=== PATIENT | female | born 1990 | race Caucasian/White ===

== ENCOUNTER → 2023-04-03 13:37 | Outpatient (REF) | payer OTHER, SELFPAY | LOC: RAD 13:37 | PROVIDERS: ATTENDING PHYSICIAN Internal Medicine Rheumatology; FAMILY PHYSICIAN Family Medicine | DX: M54.16 Radiculopathy, lumbar region (principal) | CPT/HCPCS: 72110 ==

== ENCOUNTER 2023-08-05 15:27 | Emergency (ER) | payer OTHER, SELFPAY ==
[2023-08-05 15:32] VITALS: BP 125/89
[2023-08-05 16:10] LABS: % Basophils 0.7 % (0-2); % Immature Granulocytes 0.2 % (0-0.5); % Lymphocytes 30.7 % (20.5-51.1); % Monocytes 4.8 % (1.7-9.3); % Neutrophils 63.6 % (42.2-75.2); Absolute Lymphocytes 1.4 10^3/uL (1.2-3.4); Absolute Monocytes 0.2 10^3/uL (0.1-0.6); Absolute Neutrophils 2.9 10^3/uL (1.4-6.5); Hematocrit 33.9 % (37.0-47.0); Hemoglobin 12.4 g/dL (12.0-16.0); Mean Corp Hgb Conc. 36.6 g/dL (33.0-37.0); Mean Corpuscular Hgb 30.9 pg (27.0-31.0); Mean Corpuscular Volume 84.5 fL (81.0-99.0); Mean Platelet Volume 9.5 fL (7.4-10.4); Nucleated Red Blood Cells % 0 %; Platelet Count 238 10^3/uL (130-400); Red Blood Cell Count 4.01 10^6/uL (4.20-5.40); Red Cell Dist. Width 11.6 % (11.5-14.5); White Blood Cell Count 4.6 10^3/uL (4.8-10.8)
[2023-08-05 16:25] LABS: HCG, Serum Qualitative Screen Negative
[2023-08-05 16:29] LABS: ALT (SGPT) 17 U/L (0-35); AST (SGOT) 22 U/L (14-36); Albumin 4.3 g/dl (3.5-5.0); Alkaline Phosphatase 52 U/L (38-126); Blood Urea Nitrogen 14 mg/dl (7-17); Calcium 9.7 mg/dl (8.4-10.2); Carbon Dioxide 24 mmol/L (22-30); Chloride 101 mmol/L (98-107); Glucose 170 mg/dl (70-99); Potassium 4.1 mmol/L (3.5-5.1); Sodium 135 mmol/L (135-145); Total Bilirubin 0.5 mg/dl (0.2-1.3); Total Protein 6.6 g/dl (6.3-8.2); eGFR > 60.00
[2023-08-05 16:30] LABS: Lipase 56 U/L (23-300)
--- NOTE | 2023-08-05 19:44 | ED.GENMED ---
History of Present Illness
General
Chief Complaint: Abdominal Symptoms
Source: patient
Exam Limitations: none
Time Seen by Provider: 08/05/23 19:15
Nursing documentation reviewed up to this point in time: agreed with
Travel History
Have you had any contact with someone who has COVID-19?: No
Do you have any symptoms of coronavirus? Fever > 100 degrees, chills, cough, shortness of breath, sore throat, loss of taste or smell, muscle aches, or headache?: No
History of Present Illness
History of Present Illness:
32 yo w IDDM, GERD, Edmundo's thyroiditis, mixed connective tissue disease on Plaquenil 200 mg BID, had nausea and dry heaves 7 days ago, loose but not diarrheal stools. Past 3 days stools have become urgent and watery, non bloody. Last stool 5
hours ago. She did eat cucumbers 2 days before symptoms started and they have been recalled for poss salmonella.
Denies f/c. No n/v since the first day. Denies abdominal pain.
Past History
Past History
ED Past Medical History: Asthma (As child), IDDM (Type 1) and Other (Mixed connective tissue disease on Plaquenil); Negative HTN or Hypercholesterolemia
ED Past Surgical History: Other (Laparoscopy, adenoidectomy)
Social History
Tobacco: Former smoker (occasionally)
Alcohol: None
Drug: None
Personal: (Partner in room)
Living: with family
Employment: Employed
Family History
Family History: Diabetes
Review of Systems
Review of Systems
Allergies reviewed?: Yes
All Other Systems: ROS reviewed and negative except as documented in HPI and ROS
Constitutional: Denies fever or chills
Respiratory: Denies trouble breathing
Cardiac: Denies chest pain
ABD/GI: Reports diarrhea; Denies abdominal pain, nausea, vomiting, bloody stools, black stools or anorexia
: Denies dysuria, frequency or difficulty voiding
Musculoskeletal: Reports no symptoms
Skin: Reports no symptoms
Phy Exam
Physical Exam
Physical Exam:
GENERAL: No acute distress. A&Ox3.
CONSTITUTIONAL: Afebrile.
EYES: clear, conjunctivae normal
ENMT: moist mucus membranes, Pharynx nl
RESPIRATORY: Regular respirations, nonlabored, lungs clear.
CARDIOVASCULAR: Regular rate and rhythm, no murmurs, no rubs.
GI: Soft, nontender, normal BS
MUSCULOSKELETAL: Moves with ease. Well perfused.
SKIN: Warm, dry, pink
PSYCH: Normal mood and affect. Well kept, interactive and appropriate
NEUROLOGIC: Awake, alert and oriented. No focal neurological deficits
Course
Orders/Labs/Results
Orders:
Orders
08/05/23 15:37
Test Result ONCE
08/05/23 15:56
Complete Blood Count/With Diff Urgent
Comprehensive Metabolic Panel Urgent
HCG, Serum Qualitative Screen Urgent
Lipase Urgent
Abnormal Lab Results
08/05/23
15:56
WBC 4.6 L 10^3/uL
(4.8-10.8)
RBC 4.01 L 10^6/uL
(4.20-5.40)
Hct 33.9 L %
(37.0-47.0)
Glucose 170 H mg/dl
(70-99)
08/05/23 15:56
08/05/23 15:56
Vital Signs
Initial and Last Documented VS:
Initial Vital Signs
Temp Pulse Resp BP Pulse Ox
98.5 F 55 20 125/89 97
08/05/23 15:32 08/05/23 15:32 08/05/23 15:32 08/05/23 15:32 08/05/23 15:32
Last Documented Vital Signs
Temp Pulse Resp BP Pulse Ox
98.5 F 66 20 141/74 97
08/05/23 15:32 08/05/23 20:00 08/05/23 15:32 08/05/23 20:00 08/05/23 15:32
MDM/Problems Addressed
Differential Diagnosis Includes:
dehydration, salmonella or other bacterial diarrhea
MDM/Problems Addressed:
32 yo w IDDM, GERD, Edmundo's thyroiditis, mixed connective tissue disease on Plaquenil 200 mg BID, had nausea and dry heaves 7 days ago, loose but not diarrheal stools. Past 3 days stools have become urgent and watery, non bloody. Last stool 5
hours ago. She did eat cucumbers 2 days before symptoms started and they have been recalled for poss salmonella.
Denies f/c. No n/v since the first day. Denies abdominal pain.
Pt afebrile, NAD, appears well
CBC normal
CMP normal BS 170
Abdomen benign
Out pt lab slip for stool culture and container provided with instructions.
*Critical Care Note
Total Time (30-74mins, 75-104mins- exclusive of procedures): Not Applicable
ED Attending Note
-
Portions of this chart may have been created with voice recognition software.� Occasional wrong word or��sound alike� substitutions may have occurred due to the inherent limitations of voice recognition software.
Discharge Plan
Departure
Patient Disposition: Home (Routine Discharge)
Date of Disposition: 08/05/23
Time of Disposition: 19:42
Patient with high blood pressure during this ER visit?: No
Condition: Good
Discharge Problem:
Diarrhea
Instructions: Diarrhea in teens and adults
Prescriptions:
No Action
tizanidine 4 MG tablet
4 mg PO HSPRN PRN (Reason: MUSCLE SPASM)
insulin aspart U-100 [Novolog U-100 Insulin aspart] 1,000 UNITS/10 ML solution
0 units SC ACHS
hydroxychloroquine 200 MG tablet
200 mg PO BID
biotin 1 MG tablet
1 mg PO DAILY
cholecalciferol (vitamin D3) 2,000 UNITS tablet
2,000 units PO DAILY
Insulin Pump [Patient's Own Insulin Pump:] 1 UNITS Pump.Resvr
0 ea SC ACHS
Patient Comments:
NOVOLOG
doxycycline monohydrate 100 mg tablet
100 mg PO BID Qty: 14 0RF
Referrals:
Scott Diggs DO [Family Provider] - As needed
Activity Restrictions/Additional Instructions:
As we discussed, drop off a stool sample to the out pt lab.
Your blood work shows nothing worrisome, specifically no sign of dehydration or infection.
Your blood sugar is 170
Interventions
Interventions:
*Risk Screen - Suicide Last Done: 08/05/23 15:32
*General Assessment Last Done: 08/05/23 15:32
*Neglect/Abuse Screening Last Done: 08/05/23 15:32
*Nursing Disposition Last Done: 08/05/23 20:00
GJ-Fldp[facility]-Ucnkuuujoa Assessment Last Done: 08/05/23 19:59
Discharge Date and Time
Discharge Date/Time: 08/05/23 20:00
Print Language: FRENCH
[2023-08-05 20:00] VITALS: BP 141/74
== END 2023-08-05 20:00 | disposition home or self-care (01) ==
LOC: EMR 15:27
PROVIDERS: EMERGENCY PHYSICIAN Student in an Organized Health Care Education/Training Program; FAMILY PHYSICIAN Family Medicine
DX: R19.7 Diarrhea, unspecified (principal); J45.909 Unspecified asthma, uncomplicated; E11.9 Type 2 diabetes mellitus without complications; M35.1 Other overlap syndromes; K21.9 Gastro-esophageal reflux disease without esophagitis; E06.3 Autoimmune thyroiditis; Z79.899 Other long term (current) drug therapy; Z83.3 Family history of diabetes mellitus; Z87.891 Personal history of nicotine dependence
CPT/HCPCS: 99283; 80053; 83690; 84703; 85025

== ENCOUNTER → 2023-08-06 13:41 | Outpatient (REF) | payer OTHER, SELFPAY | LOC: REG 13:41 | PROVIDERS: ATTENDING PHYSICIAN Family Medicine | DX: Z11.2 Encounter for screening for other bacterial diseases (principal) | CPT/HCPCS: 87045; 87046; 87427 ==

== ENCOUNTER 2023-09-11 16:21 | Emergency (ER) | payer OTHER, SELFPAY ==
[2023-09-11] VITALS (7 sets, daily range): BP systolic 112–142; BP diastolic 63–88
[2023-09-11 16:27] LABS: Glucose - Point of Care 245 mg/dl (70-99)
[2023-09-11 16:51] LABS: Urine Albumin Negative (Neg - Trace); Urine Bilirubin Negative (Negative); Urine Character Clear (Clear); Urine Color Yellow; Urine Glucose 3+ (Negative); Urine Ketone 3+ (Negative); Urine Leukocyte Negative (Negative); Urine Nitrite Negative (Negative); Urine Occult Blood Negative (Negative); Urine Specific Gravity 1.015 (<1.030); Urine Urobilinogen Negative (Neg - 1+)
[2023-09-11 16:53] LABS: % Basophils 0.6 % (0-2); % Immature Granulocytes 0.2 % (0-0.5); % Neutrophils 75.2 % (42.2-75.2); Absolute Monocytes 0.3 10^3/uL (0.1-0.6); Absolute Neutrophils 3.8 10^3/uL (1.4-6.5); Hematocrit 37.3 % (37.0-47.0); Hemoglobin 13.4 g/dL (12.0-16.0); Mean Corp Hgb Conc. 35.9 g/dL (33.0-37.0); Mean Corpuscular Hgb 31.2 pg (27.0-31.0); Mean Corpuscular Volume 86.7 fL (81.0-99.0); Nucleated Red Blood Cells % 0 %; Platelet Count 248 10^3/uL (130-400); Red Cell Dist. Width 11.7 % (11.5-14.5)
[2023-09-11 17:10] LABS: HCG, Serum Qualitative Screen Negative
[2023-09-11 17:16] LABS: ALT (SGPT) 17 U/L (0-35); AST (SGOT) 24 U/L (14-36); Albumin 4.8 g/dl (3.5-5.0); Alkaline Phosphatase 77 U/L (38-126); Blood Urea Nitrogen 12 mg/dl (7-17); Calcium 9.7 mg/dl (8.4-10.2); Carbon Dioxide 23 mmol/L (22-30); Chloride 100 mmol/L (98-107); Glucose 249 mg/dl (70-99); Potassium 4.4 mmol/L (3.5-5.1); Sodium 136 mmol/L (135-145); Total Bilirubin 0.6 mg/dl (0.2-1.3); Total Protein 7.1 g/dl (6.3-8.2); eGFR > 60.00
--- NOTE | 2023-09-11 18:24 | ED.GENMED ---
History of Present Illness
General
Chief Complaint: Blood Sugar Problem
Source: patient
Exam Limitations: none
Time Seen by Provider: 09/11/23 17:36
Nursing documentation reviewed up to this point in time: agreed with
History of Present Illness
History of Present Illness:
33 yr old female with type 1 diabetes presents to the ER for evaluation. Patient reports she felt dizzy today and checked her urine and she had ketones in her urine. She gives herself Tresiba insulin twice daily 10 AM and 10 PM and is on NovoLog
regular with each meal and food. She reports she is not sure why her blood sugar is elevated but she has had diarrhea for the past month and is being followed by family doctor. She is on a probiotic. no recent antibiotics She also has a mixed
connective tissue disease and 5 days ago still on sulfasalazine.
She denies any urinary frequency urgency dysuria.
Past History
Past History
ED Past Medical History: Asthma (As child), IDDM (Type 1) and Other (Mixed connective tissue disease on Plaquenil); Negative HTN or Hypercholesterolemia
ED Past Surgical History: Other (Laparoscopy, adenoidectomy)
Social History
Tobacco: Former smoker (occasionally)
Alcohol: None
Drug: None
Personal: (Partner in room)
Living: with family
Employment: Employed
Family History
Family History: Diabetes
Review of Systems
Review of Systems
Allergies reviewed?: Yes
All Other Systems: ROS reviewed and negative except as documented in HPI and ROS
Constitutional: Reports no symptoms
Respiratory: Reports no symptoms
Cardiac: Reports no symptoms
ABD/GI: Reports diarrhea; Denies abdominal pain
: Reports no symptoms
Musculoskeletal: Reports no symptoms
Skin: Reports no symptoms
Neurological: Reports no symptoms
Psychiatric: Reports no symptoms
Phy Exam
General Physical Exam
General Presentation: no apparent distress
General age: appears stated age
General Skin: warm and dry
General Habitus: normal
General Mental: alert
General Hydration: appears well hydrated
Cardiovascular Exam
Cardiovascular Exam: regular rate/rhythm, no murmur and normal peripheral pulses
Pulmonary Exam
Pulmonary Exam: lungs clear and no respiratory distress
Neurological Exam
Neurological Exam: alert and oriented x3
Musculoskeletal Exam
Musculoskeletal Exam: full ROM
Skin Exam
Skin Exam: normal color and warm/dry
Psychiatric Exam
Psychiatric Exam: normal mood/affect
Course
Orders/Labs/Results
Orders:
Orders
09/11/23 16:29
Test Result ONCE
09/11/23 16:33
Complete Blood Count/With Diff Urgent
Comprehensive Metabolic Panel Urgent
HCG, Serum Qualitative Screen Urgent
TSH Urgent
Comment: TSH ADDED ON BY FLOOR 4:30PM 09-11-23
09/11/23 16:36
Add On- LAB Urgent
Comments:: TSH
Tests Added?: TSH
09/11/23 16:38
Urinalysis Reflex To Culture Urgent
Date Specimen was Collected: 09/11/23
Time Specimen was Collected: 16:36
Abnormal Lab Results
09/11/23 09/11/23 09/11/23
16:26 16:33 16:38
MCH 31.2 H pg
(27.0-31.0)
Absolute Lymphs (auto) 1.0 L 10^3/uL
(1.2-3.4)
Lymphocytes % 19.0 L %
(20.5-51.1)
Glucose 249 H mg/dl
(70-99)
Urine Ketones 3+ A
(Negative)
Urine Glucose 3+ A
(Negative)
POC Glucose 245 H mg/dl
(70-99)
09/11/23 16:33
09/11/23 16:33
Vital Signs
Initial and Last Documented VS:
Initial Vital Signs
Temp Pulse Resp BP Pulse Ox
98.1 F 95 16 142/88 98
09/11/23 16:27 09/11/23 16:27 09/11/23 16:27 09/11/23 16:27 09/11/23 16:27
Last Documented Vital Signs
Temp Pulse Resp BP Pulse Ox
98.1 F 77 27 112/73 96
09/11/23 16:27 09/11/23 20:15 09/11/23 20:15 09/11/23 20:00 09/11/23 20:15
MDM/Problems Addressed
Differential Diagnosis Includes:
Not limited to hyperglycemia, DKA
MDM/Problems Addressed:
Patient is a type I diabetic who takes NovoLog sliding scale as well as Tresiba twice daily. She felt little dizzy today did a urine specimen and was found to have ketones in her urine and was concerned. Patient presented however to the ER no
acute distress awake alert Accu-Chek 245. Patient denies any increased thirst urinary frequency she has had issues with diarrhea recently and family doctor is aware. Her chemistries are unremarkable with normal sodium potassium no gap. Patient
did take her normal dose 0.5 units for her elevated blood sugar here today and sugar is in the low 200s. She is well-appearing she was given fluids and is stable for discharge home. She had no episodes of diarrhea here in the ER with stable vital
signs nontachycardic
*Pulse Oximetry
Patient hypoxic: no
*Critical Care Note
Total Time (30-74mins, 75-104mins- exclusive of procedures): Not Applicable
ED Attending Note
-
Portions of this chart may have been created with voice recognition software.� Occasional wrong word or��sound alike� substitutions may have occurred due to the inherent limitations of voice recognition software.
Discharge Plan
Departure
Patient Disposition: Home (Routine Discharge)
Date of Disposition: 09/11/23
Time of Disposition: 20:48
Patient with high blood pressure during this ER visit?: No
Condition: Fair
Covid-19: Not Applicable
Discharge Problem:
Acute hyperglycemia
Instructions: High Blood Sugar, Adult ED
Prescriptions:
No Action
tizanidine 4 MG tablet
4 mg PO HSPRN PRN (Reason: MUSCLE SPASM)
insulin aspart U-100 [Novolog U-100 Insulin aspart] 1,000 UNITS/10 ML solution
0 units SC ACHS
hydroxychloroquine 200 MG tablet
200 mg PO BID
biotin 1 MG tablet
1 mg PO DAILY
cholecalciferol (vitamin D3) 2,000 UNITS tablet
2,000 units PO DAILY
Insulin Pump [Patient's Own Insulin Pump:] 1 UNITS Pump.Resvr
0 ea SC ACHS
Patient Comments:
NOVOLOG
doxycycline monohydrate 100 mg tablet
100 mg PO BID Qty: 14 0RF
Referrals:
Scott Diggs DO [Family Provider] -
Activity Restrictions/Additional Instructions:
Continue to closely monitor your sugar. Stay well-hydrated with water. Follow-up with a family doctor/endocrinology and return if any worsening of symptoms
Interventions
Interventions:
ED- Neurological Assessment Last Done: 09/11/23 17:30
Discharge Date and Time
Print Language: BENGALI
== END 2023-09-11 21:03 | disposition home or self-care (01) ==
LOC: EMR 16:21
PROVIDERS: Emergency Medicine; EMERGENCY PHYSICIAN Emergency Medicine; FAMILY PHYSICIAN Family Medicine
DX: E10.65 Type 1 diabetes mellitus with hyperglycemia (principal); J45.909 Unspecified asthma, uncomplicated; Z83.3 Family history of diabetes mellitus; Z87.891 Personal history of nicotine dependence
CPT/HCPCS: 99283; 80053; 81003; 82962; 84443; 84703; 85025

== ENCOUNTER → 2023-10-17 20:01 | Outpatient (REF) | payer OTHER, SELFPAY | LOC: MRI 20:01 | PROVIDERS: ATTENDING PHYSICIAN Internal Medicine Rheumatology | DX: M06.4 Inflammatory polyarthropathy (principal); M54.11 Radiculopathy, occipito-atlanto-axial region | CPT/HCPCS: 72148; 73218 ==

== ENCOUNTER → 2023-12-31 13:54 | Outpatient (REF) | payer OTHER, SELFPAY | LOC: HWRAD 13:54 | PROVIDERS: ATTENDING PHYSICIAN Advanced Practice Midwife; FAMILY PHYSICIAN Family Medicine | DX: N93.9 Abnormal uterine and vaginal bleeding, unspecified (principal); N94.6 Dysmenorrhea, unspecified | CPT/HCPCS: 76830; 76856 ==

== ENCOUNTER → 2024-01-27 06:56 | Outpatient (REF) | payer OTHER, SELFPAY | LOC: HWRAD 06:56 | PROVIDERS: ATTENDING PHYSICIAN Internal Medicine; FAMILY PHYSICIAN Family Medicine | DX: R22.2 Localized swelling, mass and lump, trunk (principal) | CPT/HCPCS: 76705 ==

== ENCOUNTER → 2024-02-02 06:13 | Day surgery (SDC) | payer OTHER, SELFPAY ==
[2024-02-02 07:16] LABS: Glucose - Point of Care 162 mg/dl (70-99)
== END ==
LOC: GI 06:13
PROVIDERS: ATTENDING PHYSICIAN Internal Medicine
DX: K52.9 Noninfective gastroenteritis and colitis, unspecified (principal); D12.3 Benign neoplasm of transverse colon
CPT/HCPCS: 45385; 45380; 88305; 82962

== ENCOUNTER 2024-03-30 05:56 | Day surgery (SDC) | payer OTHER, SELFPAY ==
[2024-03-04 10:55] LABS: % Basophils 0.7 % (0-2); % Lymphocytes 31.9 % (20.5-51.1); % Monocytes 6.4 % (1.7-9.3); Absolute Lymphocytes 1.4 10^3/uL (1.2-3.4); Absolute Monocytes 0.3 10^3/uL (0.1-0.6); Absolute Neutrophils 2.6 10^3/uL (1.4-6.5); Hematocrit 36.6 % (37.0-47.0); Hemoglobin 12.5 g/dL (12.0-16.0); Mean Corp Hgb Conc. 34.2 g/dL (33.0-37.0); Mean Corpuscular Hgb 30.6 pg (27.0-31.0); Mean Corpuscular Volume 89.7 fL (81.0-99.0); Mean Platelet Volume 10.2 fL (7.4-10.4); Nucleated Red Blood Cells % 0 %; Platelet Count 263 10^3/uL (130-400); Red Blood Cell Count 4.08 10^6/uL (4.20-5.40); Red Cell Dist. Width 12.1 % (11.5-14.5); White Blood Cell Count 4.2 10^3/uL (4.8-10.8)
[2024-03-04 12:06] LABS: Beta HCG Quantitative < 2.39 mIU/ml
[2024-03-04 12:30] VITALS: BMI 29.6
[2024-03-04 12:32] LABS: Blood Urea Nitrogen 10 mg/dl (7-17); Carbon Dioxide 29 mmol/L (22-30); Chloride 98 mmol/L (98-107); Estimated Creatinine Clearance 122 ml/min; Glucose 179 mg/dl (70-99); Sodium 136 mmol/L (135-145); eGFR > 60.00
[2024-03-30] VITALS (10 sets, daily range): BP systolic 108–122; BP diastolic 57–78; BMI 29.6
[2024-03-30 06:33] LABS: Glucose - Point of Care 172 mg/dl (70-99)
[2024-03-30] MEDS: NEURONTIN 100 MG PO (06:35)
[2024-03-30] MEDS: NORMOSOL-R/PLASMALYTE-A 1000 IV (06:35)
[2024-03-30] MEDS: TYLENOL 1000 MG PO (06:35)
[2024-03-30] MEDS: NOVOLOG vial 1 UNITS SC (07:07)
--- NOTE | 2024-03-30 08:55 | W.IMMPOSTOP ---
Surgical Immed Post Op Note
-
Primary Surgeon: Chio Vargas DO
Dairy Husbandman: JHONATHAN Barahona
Pre-op Diagnosis: Menorrhagia, thickened endometrial lining; dysmenorrhea, pelvic pain
Post-op Diagnosis: same
Procedure Performed: diagnostic hysteroscopy D&C; robotic diagnostic laparoscopy with excision and fulgeration of endometriosis
Anesthesia Type: general Dr. Belle
Specimen / Cultures: 1. ecc 2. endometrial curettings 3. left pelvic peritoneal endometriosis implant 4. right uterosacral endometriosis implant
Estimated Blood Loss: 5ml
Urine 150ml clear yellow urine
Complications: none
Operative Findings: Uterus normal size and appearance. Endometrial cavity normal appearance, bilateral tubal ostia seen. No evidence of polyp, tumor or mass.
Laparoscopic findings: normal appearance uterus, tubes and ovaries.
Endometriosis implants noted-all superficial lesions between 2-4mm archer-brown in color:
-left pelvic peritoneum >1.5 medial to the ureter (excised)
-right uterosacral ligament implant (excised)
-several endometriosis implants in cul de sac along central arch and bilateral sides of uterosacral ligaments.
-single endometriosis implant to left of bladder on anterior pelvic peritoneum
Counts correct times 2.
Stable to recovery.
[2024-03-30] MEDS: DILAUDID 0.5 MG IV (09:29)
[2024-03-30 09:37] LABS: Glucose - Point of Care 136 mg/dl (70-99)
[2024-03-30 10:08] LABS: Glucose - Point of Care 163 mg/dl (70-99)
--- NOTE | 2024-03-30 10:19 | SUR.PHASEI ---
sleeps during stay and during Dr Vargas visit, medicated for cramping pain x1, Glucose checked and patient asked for repeat check at 1010. keeps eyes closed, vss, agrees discomfort tolerable and ready for SDS
--- NOTE | 2024-03-30 11:35 | PTCARENOTE ---
Patient threw up once when getting her up to the commode. Patient feels much better after throwing up and denies the need for nausea meds. Will monitor patient.
[2024-03-30 12:07] LABS: Glucose - Point of Care 198 mg/dl (70-99)
--- NOTE | 2024-03-30 13:02 | PTCARENOTE ---
Patients blood sugar was 198. Dr. Belle notified via tiger text and no further orders. Will monitor patient.
== END 2024-03-30 13:03 | disposition home or self-care (01) ==
LOC: SDS 05:56
PROVIDERS: ATTENDING PHYSICIAN Obstetrics & Gynecology; FAMILY PHYSICIAN Family Medicine
DX: N94.6 Dysmenorrhea, unspecified (principal); R93.5 Abnormal findings on diagnostic imaging of other abdominal regions, including retroperitoneum; N80.30 Endometriosis of pelvic peritoneum, unspecified
CPT/HCPCS: 58662; 58558; 88305; 36415; 80048; 82962; 84702; 85025; 86850; 86900; 86901

== ENCOUNTER → 2024-08-13 09:46 | Outpatient (REF) | payer OTHER, SELFPAY | LOC: HWRAD 09:46 | PROVIDERS: ATTENDING PHYSICIAN Family Medicine | DX: R30.0 Dysuria (principal); R10.9 Unspecified abdominal pain; R39.14 Feeling of incomplete bladder emptying | CPT/HCPCS: 76770 ==

== ENCOUNTER → 2024-08-27 06:42 | Outpatient (REF) | payer OTHER, SELFPAY | LOC: MRI 06:42 | PROVIDERS: ATTENDING PHYSICIAN Psychiatry & Neurology Neurology; FAMILY PHYSICIAN Family Medicine | DX: R41.3 Other amnesia (principal) | CPT/HCPCS: 70551 ==

== ENCOUNTER → 2024-09-01 07:25 | Outpatient (REF) | payer OTHER, SELFPAY | LOC: EEG 07:25 | PROVIDERS: ATTENDING PHYSICIAN Psychiatry & Neurology Neurology; FAMILY PHYSICIAN Family Medicine | DX: G40.901 Epilepsy, unspecified, not intractable, with status epilepticus (principal) | CPT/HCPCS: 95816 ==

== ENCOUNTER 2024-09-02 16:37 | Emergency (ER) | payer OTHER, SELFPAY ==
[2024-09-02 16:37] VITALS: BMI 32.7
[2024-09-02 16:45] VITALS: BP 128/71
[2024-09-02 18:03] VITALS: BP 119/78
--- NOTE | 2024-09-02 18:16 | ED.GENMED ---
History of Present Illness
General
Chief Complaint: Numbness
Time Seen by Provider: 09/02/24 18:13
History of Present Illness
History of Present Illness:
TIME OF INITIAL EVALUATION
- 6:20 PM
REVIEW OF OLD RECORDS
- The patient has a history of mixed connective tissue disease, and is being worked up for MS. She recently had an MRI on 08/27/2024 which showed 4 small white matter foci in the right frontal lobe region noted.
Note:
CHIEF COMPLAINT(S)
Numbness in the face and extremities, elevated heart rate.
HISTORY OF PRESENT ILLNESS
The patient is a 34-year-old female who presents with significant numbness in the face and extremities, extending down the leg, and experiencing a high heart rate. The numbness was accompanied by a transient episode of confusion and difficulty in
speech, described as 'double speaking.' At home, the patient measured her heart rate and noted it was 140 beats per minute. Physical examination showed normal sensation and strength, but the patient reported feelings of 'brain fog' though no double
vision was noted. She denies any recent head trauma.
The patient has previously undergone an MRI a few weeks ago, which reportedly showed some cystic lesions in the frontal lobe. She has a scheduled follow-up appointment with a neurologist, Dr. Henning, on the 30 of September, who has ordered
additional tests.
Additionally, the patient mentions a history of similar numbness episodes in the past. She has regular blood work due to having three other autoimmune diseases.
PHYSICAL EXAM
- General: Well appearing in no distress
- HEENT: Moist oral mucosa
- Cardiovascular: No murmurs, normal heart rate, regular rhythm, No chest wall tenderness
- Pulmonary: No respiratory distress, breath sounds are clear and equal
- Abdomen: Soft with no peritoneal signs, no tenderness
- Neurologic: No disconjugate gaze, no nystagmus, no diplopia, no sensory deficits, normal strength in all extremities
- Psychiatric: Appropriate mental status, normal insight and judgement
- Extremities: Nontender, no edema, moves all extremities equally
- Skin: No rash, no lesions
EXTERNAL RECORDS REVIEWED
The patient has had an MRI conducted recently which indicated a concern for cystic lesions, specifically in the frontal lobe area.
CHRONIC MEDICAL CONDITIONS SIGNIFICANTLY AFFECTING CARE
The patient has a history of three autoimmune diseases which require regular blood tests.
PLAN
Further review of the MRI report will be conducted. Given the neurologist follow-up is already scheduled, continuation with Dr. Henning is advised. Neurological evaluation seems stable at present so no immediate imaging is deemed necessary beyond
what is already scheduled.
DIFFERENTIAL DIAGNOSIS
The Differential Diagnosis includes, in no particular order and is not limited to:
1. Multiple Sclerosis
2. Transient Ischemic Attack
3. Migraine with Aura
4. Peripheral Neuropathy
5. Cerebral Cystic Lesions
6. Systemic Lupus Erythematosus
7. Anxiety or Panic Disorder
8. Hypertension
9. Cerebrovascular Accident
10. Autoimmune Encephalitis
RADIOLOGY
- Considered CT imaging of the head however the patient's stroke score is currently 0
EKG
- Sinus 75, leftward axis deviation, no acute ST abnormality
LABS
- Did not obtain labs today however the labs from March of this year showed mild leukopenia, normal hemoglobin, and glucose was high
UPDATE
-SUMMARY OF ENCOUNTER
The patient, a 34-year-old female, presented to the emergency department with significant numbness in the face and extremities, and episodes of confusion and difficulty in speech in the past. Upon evaluation, her heart rate appeared stable at 70s
bpm, and her EKG was normal. Prior MRI results indicated cystic lesions in the frontal lobe and four small white matter lesions, raising concerns for multiple sclerosis (MS) among other conditions. The patient experiences intermittent numbness and
recurrent headaches. No recent head trauma was reported.
The decision was made not to conduct further immediate imaging in the emergency department, as the recent MRI was considered sufficient. The neurologic exam performed was normal, with no signs indicative of a cerebrovascular accident or transient
ischemic attack. The emergency department physician communicated with the neurologist for further guidance and advised the patient to contact Dr. Henning for possibly an earlier appointment.
DISPOSITION
Discharge.
ASSESSMENT
The patient presents with potential neurological concerns, including MS, connective tissue disease, or vasculitis. While her MRI shows white matter lesions that could be indicative of MS or other conditions, there are no acute findings suggestive of
a stroke. Continued outpatient neurological evaluation is necessary.
PLAN
The patient is to follow up with her neurologist, Dr. Henning, as soon as possible. It is recommended that she calls on Friday to potentially move up her scheduled appointment. Further outpatient neurological assessment, possibly including a
lumbar puncture, might be indicated to explore the underlying cause of her symptoms.
PATIENT EDUCATION AND COUNSELING
The patient was counseled on the importance of continuing her follow-up with the neurologist for a detailed evaluation of the white matter lesions found in the MRI and to address the ongoing numbness and other symptoms. The potential link to MS or
other connective tissue disorders was discussed, along with the importance of monitoring her symptoms.
FOLLOW-UP INSTRUCTIONS
The patient is advised to contact her neurologist, Dr. Henning, on Friday to confirm or reschedule for an earlier appointment.
MEDICAL DECISION MAKING
- Number and Complexity of Problems Addressed: Chronic conditions affecting care include autoimmune diseases. Differential diagnoses considered include multiple sclerosis, transient ischemic attack, migraine with aura, peripheral neuropathy,
cerebral cystic lesions, systemic lupus erythematosus, anxiety or panic disorder, hypertension, cerebrovascular accident, and autoimmune encephalitis.
- Data:
- Category 1: Reviewed the recent MRI showing white matter lesions. Additional labs were considered but deemed unnecessary as they wouldnt provide much benefit.
- Category 3: Discussed the case with a neurologist for insights on management, although no immediate feedback was received.
- Risk: The decision to discharge was made based on stable vital signs, normal EKG, and a non-concerning neurological exam, while ensuring that the patient has accessible follow-up care. Prescription medication was considered but not prescribed, as
the primary management involves neurological assessment.
DIAGNOSIS
- Possible Multiple Sclerosis (G35)
- Unspecified Connective Tissue Disease (M35.9)
The patient's blood sugar according to her Dexcom is 144 currently. She is to follow-up with her neurologist as an outpatient. I did notify the on-call neurologist, Dr. Lin and agrees with the plan.
Past History
Past History
ED Past Medical History: Asthma (As child), IDDM (Type 1) and Other (Mixed connective tissue disease on Plaquenil); Negative HTN or Hypercholesterolemia
ED Past Surgical History: Other (Laparoscopy, adenoidectomy)
Social History
Tobacco: Former smoker (occasionally)
Alcohol: None
Drug: None
Personal: (Partner in room)
Living: with family
Employment: Employed
Family History
Family History: Diabetes
Phy Exam
Physical Exam
Physical Exam:
See HPI
Course
Orders/Labs/Results
Orders:
Orders
09/02/24 16:38
Electrocardiogram (*1) Urgent
Reason for Study: Tachycardia
09/02/24 16:39
EKG- Treatment ONCE
Vital Signs
Initial and Last Documented VS:
Initial Vital Signs
Temp Pulse Resp Pulse Ox
36.8 C 111 18 95
09/02/24 16:43 09/02/24 16:43 09/02/24 16:43 09/02/24 16:43
Last Documented Vital Signs
Temp Pulse Resp BP Pulse Ox
36.8 C 84 16 119/78 99
09/02/24 16:43 09/02/24 18:03 09/02/24 18:03 09/02/24 18:03 09/02/24 18:17
*Pulse Oximetry
SaO2: 99
Oxygen Mode of Delivery: Room air
Patient hypoxic: no
*Critical Care Note
Total Time (30-74mins, 75-104mins- exclusive of procedures): Not Applicable
ED Attending Note
-
Portions of this chart may have been created with voice recognition software.� Occasional wrong word or��sound alike� substitutions may have occurred due to the inherent limitations of voice recognition software.
Discharge Plan
Departure
Patient Disposition: Home (Routine Discharge)
Date of Disposition: 09/02/24
Time of Disposition: 19:00
Patient with high blood pressure during this ER visit?: Yes
Discharge Problem:
Paresthesia
Prescriptions:
No Action
insulin aspart U-100 [Novolog U-100 Insulin aspart] 1,000 UNITS/10 ML solution
0 units SC AC
Patient Comments:
sliding scale
hydroxychloroquine 200 MG tablet
200 mg PO BID
cholecalciferol (vitamin D3) 2,000 UNITS tablet
2,000 units PO DAILY
ibuprofen 600 mg Tablet
600 mg PO QID PRN (Reason: pain)
Probiotic 3 billion cell Capsule
3,000 mmu cells PO DAILY
insulin degludec [Tresiba U-100 Insulin] 100 unit/mL Solution
9 unit SC BID
Patient Comments:
between 9- 12 units BID
methylphenidate HCl [Ritalin] 20 mg Tablet
20 mg PO DAILY
[place] 3 Capsule
1,000 mg PO DAILY
Referrals:
Evette Henning MD [Non-Admitting Privileges, Neurology]
UNKNOWN - PT DOES,NOT KNOW [Unknown Provider]
Activity Restrictions/Additional Instructions:
I did review the recent MRI. Your EKG today is unremarkable. It shows a normal sinus rhythm with rate of 75. I also briefly was in contact with one of our neurologists who suggested the possibly of an lumbar puncture at some point but did not
feel that it was emergently necessary. You should talk to your neurologist on Friday.
Interventions
Interventions:
*Risk Screen - Suicide Last Done: 09/02/24 16:46
*General Assessment Last Done: 09/02/24 17:45
*Neglect/Abuse Screening Last Done: 09/02/24 17:45
*ED- Fall Risk Assessment Last Done: 09/02/24 17:45
ED- Neurological Assessment Last Done: 09/02/24 17:45
Discharge Date and Time
Print Language: POLISH
== END 2024-09-02 19:26 | disposition home or self-care (01) ==
LOC: EMR 16:37
PROVIDERS: EMERGENCY PHYSICIAN Emergency Medicine; FAMILY PHYSICIAN Family Medicine
DX: R20.2 Paresthesia of skin (principal); J45.909 Unspecified asthma, uncomplicated; Z83.3 Family history of diabetes mellitus; Z87.891 Personal history of nicotine dependence
CPT/HCPCS: 99283; 93005